=== PATIENT | female | born 1950 | race Caucasian/White ===

== ENCOUNTER 2018-05-08 13:00 | Inpatient (IN) | payer OTHER ==
[~2018-05-08] VITALS: Ht 160 cm; Wt 67.6 kg
[~2018-05-08 13:00] MED LIST: NABUMETONE500 MG PO; PERCOCET 5/3251 TAB PO
[2018-05-08] MEDS ORDERED: AVAPRO300 MG PO (18:07)
[2018-05-20] MEDS ORDERED: DOCUSATE SODIU100 MG PO (10:04)
[2018-05-20] MEDS ORDERED: PERCOCET 5-3251 EACH PO (10:05)
[2018-05-20] MEDS ORDERED: CLONAZEPAM1 MG PO (10:05)
== END 2018-05-20 14:12 | disposition home or self-care (01) | DRG 455 ==
LOC: O/R 05-19 04:55 → PED 05-19 04:55 → RECOVERY 05-19 10:00 → PED 05-19 17:59
PROVIDERS: Orthopaedic Surgery Orthopaedic Surgery of the Spine
PROC: 0RG2071 Fusion of 2 or more Cervical Vertebral Joints with Autologous Tissue Substitute, Posterior Approach, Posterior Column, Open Approach (ICD-10-PCS; 2018-05-19)
PROC: 0RT30ZZ Resection of Cervical Vertebral Disc, Open Approach (ICD-10-PCS; 2018-05-19)
PROC: 07DS3ZZ Extraction of Vertebral Bone Marrow, Percutaneous Approach (ICD-10-PCS; 2018-05-19)
PROC: 0RG20A0 Fusion of 2 or more Cervical Vertebral Joints with Interbody Fusion Device, Anterior Approach, Anterior Column, Open Approach (ICD-10-PCS; principal; 2018-05-19 10:00)
DX: M47.22 Other spondylosis with radiculopathy, cervical region (principal); M50.11 Cervical disc disorder with radiculopathy, high cervical region; I10 Essential (primary) hypertension; E03.8 Other specified hypothyroidism